=== PATIENT | male | born 1995 | race Caucasian/White ===

== ENCOUNTER 2018-01-20 02:23 | Emergency (ER) | payer OTHER ==
[~2018-01-20] VITALS: Ht 188 cm; Wt 73.4 kg
[2018-01-20 02:28] VITALS: TEMP 36.8; Ht 188 cm; Wt 73.4 kg
--- NOTE | 2018-01-20 03:03 | EMERGENCY ROOM VISIT NOTE ---
History Report prepared by Blair: Jairo Paredes Under the Supervision of: Dr. Jessica Bradley D.O. First contact with patient: 02:40 Chief Complaint: CHEST PAIN Stated Complaint: CHEST PAIN,DIFFICULTY BREATHING Nursing Triage Summary: c/o intermittent mid chest pain that started a few months ago that worsened tonight approx 2-3 hours ago. History of Present Illness The patient is a 22 year old male who presents to the Emergency Room with complaints of constant chest pain beginning 2-3 hours ago. The patient states that he has been having intermittent chest pain for a few months due to his bicuspid aortic valve. He notes that his pain is located in his center and left chest, which he reports is normal. The patient states that his pain feels like a sharp pressure, which he notes is also normal. He reports that his pain typically only lasts for a few seconds, but states that he came to the emergency department tonight because his symptoms lasted longer than usual. He notes that he has tried tums before with no relief of his symptoms. Per friend, the patient seemed to be SOB when he was sleeping. The patient reports that he has been SOB for the last two months and is mildly short of breath now. He states that when he gets chest pain he becomes SOB. He notes that he has no history of reflux. Patient states he has an appointment this morning with cardiology for an office visit as well as an echo. Source of History: patient, friend Onset: 2-3 hours ago Position: chest Quality: pressure, sharp Timing: constant Associated Symptoms: + SOB Review of Systems See HPI for pertinent positives & negatives. A total of 10 systems reviewed and were otherwise negative. Past Medical & Surgical Medical Problems: (1) Bicuspid aortic valve Family History Gallbladder disease Hypertension Social History Smoking Status: Current Every Day Smoker Alcohol Use: none Drug Use: none Marital Status: in relationship Housing Status: lives with significant other Occupation Status: employed Current/Historical Medications No Active Prescriptions or Reported Meds Allergies Coded Allergies: Amoxicillin (Verified Allergy, Unknown, `, 01/20/18) Penicillins (Verified Allergy, Unknown, ., 01/20/18) Physical Exam Vital Signs Date Time Temp Pulse Resp B/P (MAP) Pulse Ox O2 Delivery O2 Flow Rate FiO2 01/20/18 07:40 61 14 125/67 97 01/20/18 07:11 61 15 111/66 97 Room Air 01/20/18 06:20 61 01/20/18 06:17 60 16 124/67 98 Room Air 01/20/18 04:14 66 16 121/66 98 Room Air 01/20/18 02:37 75 01/20/18 02:28 36.8 66 18 147/78 100 Room Air Physical Exam GENERAL: alert, well appearing, thin, no distress, non-toxic, smells of tobacco smoke EYE EXAM: normal conjunctiva, PERRL and EOM's grossly intact OROPHARYNX: no exudate, no erythema, lips, buccal mucosa, and tongue normal and mucous membranes are moist NECK: supple, no nuchal rigidity, no adenopathy, non-tender LUNGS: Clear to auscultation. Normal chest wall mechanics, no wheezes, rhonchi, rales. HEART: no murmurs, S1 normal and S2 normal CHEST: Mildly reproducible chest wall pain in left sternal border and left chest ABDOMEN: abdomen soft, non-tender, normo-active bowel sounds, no masses, no rebound or guarding. BACK: Back is symmetrical on inspection and there is no deformity, no midline tenderness, no CVA tenderness. SKIN: no rashes and no bruising UPPER EXTREMITIES: upper extremities are grossly normal. Full range of motion and normal pulses. LOWER EXTREMITIES: No pitting edema. Full range of motion and normal pulses. NEURO EXAM: Normal sensorium, cranial nerves II-XII grossly intact, normal speech, no gross weakness of arms, no gross weakness of legs. Medical Decision & Procedures ER Provider Diagnostic Interpretation: Radiology results have been interpreted and reviewed by me. CHEST X-RAY: No cardiomegaly. No effusion. No wide mediastinum. No focal infiltrate. No pneumothorax. Laboratory Results 01/20/18 02:45 Red Blood Count 4.41, Mean Corpuscular Volume 90.0, Mean Corpuscular Hemoglobin 31.5, Mean Corpuscular Hemoglobin Concent 35.0, Mean Platelet Volume 11.3, Neutrophils (%) (Auto) 63.9, Lymphocytes (%) (Auto) 24.7, Monocytes (%) (Auto) 7.2, Eosinophils (%) (Auto) 3.7, Basophils (%) (Auto) 0.2, Neutrophils # (Auto) 8.04, Lymphocytes # (Auto) 3.10, Monocytes # (Auto) 0.90, Eosinophils # (Auto) 0.46, Basophils # (Auto) 0.02 01/20/18 02:45 Test 01/20/18 02:45 01/20/18 03:25 01/20/18 05:50 01/20/18 07:39 White Blood Count 12.56 K/uL (4.8-10.8) Red Blood Count 4.41 M/uL (4.7-6.1) Hemoglobin 13.9 g/dL (14.0-18.0) Hematocrit 39.7 % (42-52) Mean Corpuscular Volume 90.0 fL (80-100) Mean Corpuscular Hemoglobin 31.5 pg (25-34) Mean Corpuscular Hemoglobin Concent 35.0 g/dl (32-36) Platelet Count 203 K/uL (130-400) Mean Platelet Volume 11.3 fL (7.4-10.4) Neutrophils (%) (Auto) 63.9 % Lymphocytes (%) (Auto) 24.7 % Monocytes (%) (Auto) 7.2 % Eosinophils (%) (Auto) 3.7 % Basophils (%) (Auto) 0.2 % Neutrophils # (Auto) 8.04 K/uL (1.4-6.5) Lymphocytes # (Auto) 3.10 K/uL (1.2-3.4) Monocytes # (Auto) 0.90 K/uL (0.11-0.59) Eosinophils # (Auto) 0.46 K/uL (0-0.5) Basophils # (Auto) 0.02 K/uL (0-0.2) RDW Standard Deviation 41.4 fL (36.4-46.3) RDW Coefficient of Variation 12.7 % (11.5-14.5) Immature Granulocyte % (Auto) 0.3 % Immature Granulocyte # (Auto) 0.04 K/uL (0.00-0.02) Prothrombin Time 11.1 SECONDS (9.0-12.0) Prothromb Time International Ratio 1.1 (0.9-1.1) D-Dimer < 190 ug/L FEU (0-500) Anion Gap 8.0 mmol/L (3-11) Est Creatinine Clear Calc Drug Dose 121.9 ml/min Estimated GFR () 126.1 Estimated GFR (Non- 108.8 BUN/Creatinine Ratio 13.2 (10-20) Calcium Level 8.9 mg/dl (8.5-10.1) Magnesium Level 2.0 mg/dl (1.8-2.4) Total Bilirubin 0.2 mg/dl (0.2-1) Aspartate Amino Transf (AST/SGOT) 12 U/L (15-37) Alanine Aminotransferase (ALT/SGPT) 19 U/L (12-78) Alkaline Phosphatase 59 U/L (45-117) Total Protein 7.2 gm/dl (6.4-8.2) Albumin 3.9 gm/dl (3.4-5.0) Globulin 3.3 gm/dl (2.5-4.0) Albumin/Globulin Ratio 1.2 (0.9-2) Thyroid Stimulating Hormone (TSH) 0.427 uIu/ml (0.300-4.500) Monoscreen NEG (NEG) Influenza Type A Antigen Neg for Influ A (NEG) Influenza Type B Antigen Neg for Influ B (NEG) Troponin I < 0.015 ng/ml (0-0.045) Pro-B-Type Natriuretic Peptide 22 pg/ml (0-450) Urine Opiates Screen NEG (NEG) Urine Methadone, Qualitative NEG (NEG) Urine Barbiturates NEG (NEG) Urine Phencyclidine (PCP) Level NEG (NEG) Ur Amphetamine/Methamphetamine NEG (NEG) MDMA (Ecstasy) Screen NEG (NEG) Urine Benzodiazepines Screen NEG (NEG) Urine Cocaine Metabolite NEG (NEG) Urine Marijuana (THC) POS (NEG) Laboratory results per my review. ECG Per My Interpretation Indication: chest pain Rate (beats per minute): 61 Rhythm: sinus rhythm Findings: no acute ischemic change, no ectopy, other (Normal axis, normal intervals, LVH by voltage criteria) ED Course 0243: The patient was evaluated in room B10. A complete history and physical exam was performed. 0713: I reevaluated and updated the patient. He still refuses to provide a urine sample. 0729: Upon reevaluation, the patient is feeling better. I discussed the findings and the treatment plan with the patient. He verbalizes agreement and understanding. The patient was discharged home. Medical Decision Differential diagnosis: Etiologies such as cardiac ischemia, aortic dissection, pulmonary embolism, pneumonia, pneumothorax, musculoskeletal, infections, pericarditis, myocarditis , esophageal rupture, gastrointestinal, as well as others were entertained. Patient refused to provide a urine specimen through the several hours that he was watched here. Patient kept on cardiac monitoring as a precaution due to his symptoms and history, no dysrhythmia or ectopy noted throughout. Patient already scheduled this morning for cardiology office visit and echo. I think this is most appropriate for the patient at this time. No evidence of ACS, CHF , PE, infectious etiology, effusion. I do not suspect an acute valve rupture, dissection, aneurysm. Patient fell asleep. Needed to be aroused, did not feel patient is in significant distress or warrants other emergency cardiology evaluation in the emergency room. Patient monitored here until his discharge and was instructed to go directly to his appointment. Patient is agreeable and prefer to go right to his appointment. Discussed symptoms to watch and return for, importance of hydration, importance of following cardiology instructions and having testing performed, encouraged to quit smoking and discuss long-term health complications of tobacco abuse. I am slightly suspicious that the patient may be using recreational drugs as he refused to provide a urine specimen over the course of several hours and he was drinking fluids in the room. Patient did not appear or act altered or intoxicated. Labs and imaging otherwise reassuring the patient vital signs stable throughout. Patient well- appearing at time of discharge ambulating with a steady gait with no apparent distress. Blood Pressure Screening Patient's blood pressure: Normal blood pressure Blood pressure disposition: Did not require urgent referral Impression Primary Impression: Non-cardiac chest pain Scribe Attestation The scribe's documentation has been prepared under my direction and personally reviewed by me in its entirety. I confirm that the note above accurately reflects all work, treatment, procedures, and medical decision making performed by me. Departure Information Dispostion Home / Self-Care Prescriptions No Active Prescriptions or Reported Meds Referrals No Doctor, Assigned (PCP) Forms HOME CARE DOCUMENTATION FORM, IMPORTANT VISIT INFORMATION Patient Instructions [facility] Additional Instructions Please go directly to your cardiology appointment and complete your additional cardiology testing today. If you have any recurrent or worsening chest pain, develop trouble breathing, fevers, dizziness, passing out, vomiting, arm or leg swelling, or you have any other new or concerning symptoms, please return the emergency room. Please consider quitting smoking. Please make sure you are drinking plenty of water. Please avoid alcohol or any recreational drug use, and be cautious with your caffeine consumption as these can contribute to different causes of chest pain also.
[2018-01-20 03:14] LABS: BASO % 0.2 %; BASO ABS # 0.02 K/uL (0-0.2); EOS % 3.7 %; EOS ABS # 0.46 K/uL (0-0.5); HEMATOCRIT 39.7 % (42-52); HEMOGLOBIN 13.9 g/dL (14.0-18.0); IG# 0.04 K/uL (0.00-0.02); LYMPH % 24.7 %; MEAN CORPUSCULAR HEMOGLOBIN 31.5 pg (25-34); MEAN PLATELET VOLUME 11.3 fL (7.4-10.4); MONO % 7.2 %; NEUT % 63.9 %; NEUT ABS # 8.04 K/uL (1.4-6.5); PLATELET COUNT 203 K/uL (130-400); RED CELL DISTRIBUTION WIDTH CV 12.7 % (11.5-14.5); RED CELL DISTRIBUTION WIDTH SD 41.4 fL (36.4-46.3); WHITE BLOOD COUNT 12.56 K/uL (4.8-10.8)
[2018-01-20 03:22] LABS: ALBUMIN 3.9 gm/dl (3.4-5.0); ALT/SGPT 19 U/L (12-78); AST/SGOT 12 U/L (15-37); BLOOD UREA NITROGEN 13 mg/dl (7-18); CALCIUM 8.9 mg/dl (8.5-10.1); CARBON DIOXIDE 26 mmol/L (21-32); CREATININE 0.97 mg/dl (0.60-1.40); GLUCOSE 106 mg/dl (70-99); POTASSIUM 3.7 mmol/L (3.5-5.1); SODIUM 141 mmol/L (136-145)
[2018-01-20 03:32] LABS: INR 1.1 (0.9-1.1)
[2018-01-20 03:33] LABS: ALKALINE PHOSPHATASE 59 U/L (45-117); TOTAL PROTEIN 7.2 gm/dl (6.4-8.2)
[2018-01-20 03:49] LABS: INFLUENZA B ANTIGEN Neg for Influ B (NEG)
--- NOTE | 2018-01-20 07:28 | DIAGNOSTIC IMAGING REPORT ---
CHEST ONE VIEW PORTABLE CLINICAL HISTORY: 22 years-old Male presenting with chest pain. TECHNIQUE: Portable upright AP view of the chest was obtained. COMPARISON: None. FINDINGS: Cardiomediastinal silhouette normal. Lungs and pleural spaces clear. Osseous structures normal. Upper abdomen normal. IMPRESSION: 1. No acute cardiopulmonary disease. Electronically signed by: Patrick Griffin M.D. 01/20/2018 7:27 AM Dictated Date/Time: 01/20/2018 7:27 AM
[2018-01-20 07:40] VITALS: BP 125/67; PULSE 61; O2SAT 97
== END 2018-01-20 07:37 | disposition home or self-care (01) ==
LOC: C.EDB 02:25
DX: R07.89 Other chest pain (principal); Z71.6 Tobacco abuse counseling; Q23.1 Congenital insufficiency of aortic valve; F17.200 Nicotine dependence, unspecified, uncomplicated; Z82.49 Family history of ischemic heart disease and other diseases of the circulatory system; Z83.79 Family history of other diseases of the digestive system; Z88.1 Allergy status to other antibiotic agents; Z88.0 Allergy status to penicillin